=== PATIENT | female | born 1945 | race Caucasian/White ===

== ENCOUNTER 2017-09-24 15:35 | Inpatient (IN) | payer MEDICARE ==
[~2017-09-24] VITALS: Ht 157.5 cm; Wt 86.0 kg
[~2017-09-24 15:35] MED LIST: ASPI-621 PO; ATOR20TA PO; DESM0.1T2 PO; DIAZ5TAB PO; ERGO500017 PO; GABA300C10 PO; HYDR-3341 PO; HYDR100V3 SQ; HYDR10TA PO; IBUP-1221 PO; INSU100C5 SQ-INSULIN; INSU100I28 SQ-INSULIN; MORP20CA17 PO; MORP20SO IM; OMEP-110 PO; SENN1TAB7 PO
[2017-09-24 16:56] LABS: BASOPHILS # (AUTO) 0.01 x10^3/uL (0-0.1); BASOPHILS % (AUTO) 0 % (0-1); EOSINOPHILS # (AUTO) 0.08 x10^3/uL (0-0.4); EOSINOPHILS % (AUTO) 1 % (1-7); LYMPHOCYTES # (AUTO) 0.95 x10^3/uL (1-3.4); LYMPHOCYTES % (AUTO) 11 % (22-44); MD NO; MEAN CORPUSCULAR HEMOGLOBIN 29.6 pg (27.0-34.8); MEAN CORPUSCULAR HGB CONC 34.8 g/dL (32.4-35.8); MEAN CORPUSCULAR VOLUME 85.3 fL (80-100); MEAN PLATELET VOLUME 7.8 fL (7.4-10.4); MONOCYTES # (AUTO) 0.55 x10^3/uL (0.2-0.8); MONOCYTES % (AUTO) 6 % (2-9); NEUTROPHILS # (AUTO) 7.38 x10^3/uL (1.8-6.8); NEUTROPHILS % (AUTO) 82 % (42-75); PLATELET COUNT 401 x10^3/uL (130-400); RED BLOOD COUNT 5.82 x10^6/uL (3.82-5.3); RED CELL DISTRIBUTION WIDTH 12.7 % (9.6-15.2)
[2017-09-24 18:17] LABS: ALBUMIN 3.3 g/dL (3.4-5.0); ANION GAP 8 mmol/L (5-15); CALCIUM 8.7 mg/dL (8.5-10.1); CHLORIDE 106 mmol/L (98-107); CREATININE 0.84 mg/dL (0.55-1.02)
[2017-09-24 18:21] LABS: TROPONIN I < 0.015 ng/mL (0.000-0.045)
[2017-09-24] MEDS ORDERED: SODIUM CHLORIDE 0.9% 1,000 ML IV ONE ×3 (20:41→21:17)
[2017-09-24] MEDS ORDERED: [UNRECOGNIZED DRUG - CODE] SC (21:00)
[2017-09-24] MEDS ORDERED: HYDR100V3 INJ (21:00)
[2017-09-24] MEDS ORDERED: FENT-58 TD (21:00)
[2017-09-24] MEDS ORDERED: SODIUM CHLORIDE FLUSH 10ML SYR IVF PRN ×2 (21:30)
[2017-09-24] MEDS ORDERED: NS + 20MEQ KCL 1,000 ML IV SCH (21:49)
[2017-09-24] MEDS ORDERED: LABETALOL 5MG/ML, 20ML IVPush PRN (22:00)
[2017-09-24] MEDS ORDERED: TEMAZEPAM 15 MG CAPSULE PO PRN (22:00)
[2017-09-24] MEDS ORDERED: DOCUSATE 100 MG CAPSULE PO PRN (22:00)
[2017-09-24 22:15] VITALS: BP 161/86
[2017-09-24] MEDS: INSULIN LISPRO 100 UNITS/ML, PEN SQ-INSULIN SCH (23:15)
[2017-09-25] MEDS: HEPARIN 5,000 UNITS/ML, 1ML SQ SCH ×3 (00:37→17:08)
[2017-09-25 00:44] VITALS: BP 171/118
[2017-09-25 00:49] VITALS: BP 155/84
[2017-09-25 06:31] LABS: BASOPHILS # (AUTO) 0.01 x10^3/uL (0-0.1); BASOPHILS % (AUTO) 0 % (0-1); EOSINOPHILS % (AUTO) 1 % (1-7); LYMPHOCYTES # (AUTO) 1.52 x10^3/uL (1-3.4); LYMPHOCYTES % (AUTO) 15 % (22-44); MD NO; MEAN CORPUSCULAR HEMOGLOBIN 29.4 pg (27.0-34.8); MEAN CORPUSCULAR HGB CONC 34.8 g/dL (32.4-35.8); MEAN CORPUSCULAR VOLUME 84.5 fL (80-100); MONOCYTES # (AUTO) 0.74 x10^3/uL (0.2-0.8); MONOCYTES % (AUTO) 7 % (2-9); NEUTROPHILS # (AUTO) 8.15 x10^3/uL (1.8-6.8); NEUTROPHILS % (AUTO) 78 % (42-75); PLATELET COUNT 327 x10^3/uL (130-400); RED CELL DISTRIBUTION WIDTH 12.6 % (9.6-15.2)
[2017-09-25 06:41] LABS: CALCIUM 8.4 mg/dL (8.5-10.1); CHLORIDE 108 mmol/L (98-107)
[2017-09-25 07:14] LABS: CHLORIDE,URINE RANDOM 158 mmol/L; POTASSIUM,URINE RANDOM 36 mmol/L; SODIUM,URINE RANDOM 148 mmol/L
[2017-09-25] MEDS: HYDROCORTISONE 10 MG TABLET PO SCH (07:30)
[2017-09-25 07:31] LABS: ALANINE AMINOTRANSFERASE 35 U/L (12-78); ALBUMIN 3.2 g/dL (3.4-5.0); ALKALINE PHOSPHATASE 94 U/L (45-117); ANION GAP 13 mmol/L (5-15); BILIRUBIN,TOTAL 0.8 mg/dL (0.2-1.0); CREATININE 0.78 mg/dL (0.55-1.02); TOTAL PROTEIN 7.4 g/dL (6.4-8.2)
[2017-09-25 08:18] VITALS: BP 135/90
[2017-09-25] MEDS ORDERED: HYDROCORTISONE 20 MG TABLET ONE (08:23)
[2017-09-25] MEDS ORDERED: HYDROCORTISONE 5 MG TABLET ONE (08:23)
[2017-09-25] MEDS ORDERED: FENTANYL 50 MCG PATCH ONE (08:24)
[2017-09-25] MEDS: GABAPENTIN 300 MG CAPSULE PO SCH ×3 (08:33→21:12)
[2017-09-25] MEDS: ASPIRIN 81 MG TABLET EC PO SCH (08:33)
[2017-09-25] MEDS: POTASSIUM CHLORIDE 20 MEQ TAB.ER.PRT PO SCH ×3 (08:34→11:13)
[2017-09-25] MEDS: FAMOTIDINE 20 MG TABLET PO SCH ×2 (08:34→21:13)
[2017-09-25] MEDS: INSULIN LISPRO 100 UNITS/ML, PEN SQ-INSULIN SCH ×4 (08:35→21:13)
[2017-09-25] MEDS: SOMATROPIN SC SCH (08:35)
[2017-09-25] MEDS: INSULIN GLARGINE 100 UNITS/ML, PEN SQ-INSULIN SCH (09:00)
[2017-09-25] MEDS ORDERED: FENTANYL 100 MCG PATCH TD SCH (09:00)
[2017-09-25] MEDS: DESMOPRESSIN 0.2 MG TABLET PO SCH (10:34)
[2017-09-25 11:25] LABS: CLOSTRIDIUM DIFFICILE ANTIGEN NEGATIVE; CLOSTRIDIUM DIFFICILE TOXIN NEGATIVE (Negative)
[2017-09-25] MEDS: HYDROmorphone 2 MG/ML, 1ML IVPush PRN ×3 (12:17→21:18)
[2017-09-25 13:24] VITALS: BP 145/87
[2017-09-25] MEDS: POTASSIUM CHLORIDE 40 MEQ in SODIUM CHLORIDE 0.9% 500 ML IV SCH ×2 (13:30→17:53)
[2017-09-25] MEDS ORDERED: FENTANYL 25 MCG PATCH TD SCH ×2 (15:00)
[2017-09-25 17:29] LABS: MICROSCOPIC AUTO
[2017-09-25 17:31] LABS: CULTURE INDICATED? NO
[2017-09-25 20:45] VITALS: BP 147/82
[2017-09-26] MEDS: HEPARIN 5,000 UNITS/ML, 1ML SQ SCH ×3 (00:13→17:20)
[2017-09-26 02:35] VITALS: BP 175/96
[2017-09-26] MEDS: HYDROmorphone 2 MG/ML, 1ML IVPush PRN ×5 (02:51→20:51)
[2017-09-26 03:55] VITALS: BP 166/83
[2017-09-26 04:53] LABS: BASOPHILS # (AUTO) 0.16 x10^3/uL (0-0.1); BASOPHILS % (AUTO) 2 % (0-1); EOSINOPHILS # (AUTO) 0.29 x10^3/uL (0-0.4); EOSINOPHILS % (AUTO) 3 % (1-7); LYMPHOCYTES # (AUTO) 2.39 x10^3/uL (1-3.4); LYMPHOCYTES % (AUTO) 25 % (22-44); MD NO; MEAN CORPUSCULAR HEMOGLOBIN 29.2 pg (27.0-34.8); MEAN CORPUSCULAR HGB CONC 33.6 g/dL (32.4-35.8); MEAN CORPUSCULAR VOLUME 86.9 fL (80-100); MONOCYTES # (AUTO) 0.87 x10^3/uL (0.2-0.8); MONOCYTES % (AUTO) 9 % (2-9); NEUTROPHILS # (AUTO) 5.83 x10^3/uL (1.8-6.8); NEUTROPHILS % (AUTO) 61 % (42-75); PLATELET COUNT 364 x10^3/uL (130-400); RED BLOOD COUNT 5.62 x10^6/uL (3.82-5.3); RED CELL DISTRIBUTION WIDTH 13.2 % (9.6-15.2)
[2017-09-26 05:02] LABS: ALANINE AMINOTRANSFERASE 30 U/L (12-78); ANION GAP 5 mmol/L (5-15); CALCIUM 8.9 mg/dL (8.5-10.1); CHLORIDE 111 mmol/L (98-107); CREATININE 1.01 mg/dL (0.55-1.02)
[2017-09-26 05:04] LABS: ALKALINE PHOSPHATASE 81 U/L (45-117); BILIRUBIN,TOTAL 0.7 mg/dL (0.2-1.0); TOTAL PROTEIN 6.8 g/dL (6.4-8.2)
[2017-09-26] MEDS: INSULIN LISPRO 100 UNITS/ML, PEN SQ-INSULIN SCH ×4 (07:00→20:54)
[2017-09-26] MEDS: HYDROCORTISONE 10 MG TABLET PO SCH (07:30)
[2017-09-26 07:56] VITALS: BP 167/83
[2017-09-26] MEDS ORDERED: POTASSIUM CHLORIDE 40 MEQ in SODIUM CHLORIDE 0.45% 1,000 ML IV SCH (09:00)
[2017-09-26] MEDS ORDERED: NS + 40MEQ KCL 1,000 ML IV SCH (09:00)
[2017-09-26] MEDS ORDERED: MAGNESIUM SULFATE PMX 2GM/50ML 50 ML IV ONE (09:00)
[2017-09-26] MEDS ORDERED: POTASSIUM PHOSPHATE 44 MEQ in SODIUM CHLORIDE 0.9% 500 ML IV ONE (09:00)
[2017-09-26] MEDS: SOMATROPIN SC SCH (09:00)
[2017-09-26] MEDS ORDERED: HYDROCORTISONE 20 MG TABLET ONE (09:16)
[2017-09-26] MEDS ORDERED: HYDROCORTISONE 5 MG TABLET ONE (09:16)
[2017-09-26] MEDS: GABAPENTIN 300 MG CAPSULE PO SCH ×3 (09:24→20:51)
[2017-09-26] MEDS: ASPIRIN 81 MG TABLET EC PO SCH (09:24)
[2017-09-26] MEDS: FAMOTIDINE 20 MG TABLET PO SCH ×2 (09:25→20:51)
[2017-09-26] MEDS: DESMOPRESSIN 0.2 MG TABLET PO SCH (09:25)
[2017-09-26] MEDS: INSULIN GLARGINE 100 UNITS/ML, PEN SQ-INSULIN SCH (09:27)
[2017-09-26] MEDS ORDERED: INSULIN GLARGINE 100 UNITS/ML, PEN SQ-INSULIN ONE ×2 (12:30→16:30)
[2017-09-26 13:14] VITALS: BP 160/92
[2017-09-26 20:11] VITALS: BP 152/82
[2017-09-27] MEDS: HYDROmorphone 2 MG/ML, 1ML IVPush PRN ×7 (00:17→21:17)
[2017-09-27] MEDS: HEPARIN 5,000 UNITS/ML, 1ML SQ SCH ×4 (00:18→23:57)
[2017-09-27 01:19] VITALS: BP 145/76
[2017-09-27 05:27] LABS: BASOPHILS # (AUTO) 0.17 x10^3/uL (0-0.1); BASOPHILS % (AUTO) 2 % (0-1); EOSINOPHILS % (AUTO) 5 % (1-7); LYMPHOCYTES # (AUTO) 2.49 x10^3/uL (1-3.4); LYMPHOCYTES % (AUTO) 25 % (22-44); MD NO; MEAN CORPUSCULAR HEMOGLOBIN 29.3 pg (27.0-34.8); MEAN CORPUSCULAR HGB CONC 34.6 g/dL (32.4-35.8); MEAN CORPUSCULAR VOLUME 84.7 fL (80-100); MEAN PLATELET VOLUME 7.9 fL (7.4-10.4); MONOCYTES % (AUTO) 9 % (2-9); NEUTROPHILS # (AUTO) 5.86 x10^3/uL (1.8-6.8); NEUTROPHILS % (AUTO) 59 % (42-75); PLATELET COUNT 276 x10^3/uL (130-400); RED BLOOD COUNT 5.45 x10^6/uL (3.82-5.3); RED CELL DISTRIBUTION WIDTH 12.9 % (9.6-15.2)
[2017-09-27 05:37] LABS: ALBUMIN 2.9 g/dL (3.4-5.0); ANION GAP 9 mmol/L (5-15); CALCIUM 8.8 mg/dL (8.5-10.1); CHLORIDE 109 mmol/L (98-107)
[2017-09-27 05:40] LABS: ALANINE AMINOTRANSFERASE 27 U/L (12-78); ALKALINE PHOSPHATASE 71 U/L (45-117); BILIRUBIN,TOTAL 0.5 mg/dL (0.2-1.0); CREATININE 0.99 mg/dL (0.55-1.02); TOTAL PROTEIN 6.7 g/dL (6.4-8.2)
[2017-09-27 06:35] VITALS: BP 159/83
[2017-09-27] MEDS ORDERED: HYDROCORTISONE 20 MG TABLET ONE (08:26)
[2017-09-27] MEDS ORDERED: HYDROCORTISONE 5 MG TABLET ONE (08:26)
[2017-09-27] MEDS: INSULIN LISPRO 100 UNITS/ML, PEN SQ-INSULIN SCH ×4 (08:36→20:17)
[2017-09-27] MEDS: FAMOTIDINE 20 MG TABLET PO SCH ×2 (08:38→20:12)
[2017-09-27] MEDS: ASPIRIN 81 MG TABLET EC PO SCH (08:38)
[2017-09-27] MEDS: HYDROCORTISONE 10 MG TABLET PO SCH (08:39)
[2017-09-27] MEDS: DESMOPRESSIN 0.2 MG TABLET PO SCH (08:39)
[2017-09-27] MEDS: GABAPENTIN 300 MG CAPSULE PO SCH ×3 (08:50→20:12)
[2017-09-27] MEDS: SOMATROPIN SC SCH (09:18)
[2017-09-27] MEDS: INSULIN GLARGINE 100 UNITS/ML, PEN SQ-INSULIN SCH (09:18)
[2017-09-27 11:12] VITALS: BP 159/84
[2017-09-27 13:27] VITALS: BP 165/89
[2017-09-27 16:22] VITALS: BP 157/88
[2017-09-27 19:18] VITALS: BP 130/65
[2017-09-28 01:25] VITALS: BP 155/98
[2017-09-28] MEDS: HYDROmorphone 2 MG/ML, 1ML IVPush PRN ×2 (04:44→10:28)
[2017-09-28 05:38] LABS: BASOPHILS # (AUTO) 0.09 x10^3/uL (0-0.1); BASOPHILS % (AUTO) 1 % (0-1); EOSINOPHILS % (AUTO) 6 % (1-7); LYMPHOCYTES # (AUTO) 2.08 x10^3/uL (1-3.4); LYMPHOCYTES % (AUTO) 26 % (22-44); MD NO; MEAN CORPUSCULAR HEMOGLOBIN 29.7 pg (27.0-34.8); MEAN CORPUSCULAR VOLUME 84.8 fL (80-100); MEAN PLATELET VOLUME 8.4 fL (7.4-10.4); MONOCYTES # (AUTO) 0.73 x10^3/uL (0.2-0.8); MONOCYTES % (AUTO) 9 % (2-9); NEUTROPHILS # (AUTO) 4.65 x10^3/uL (1.8-6.8); NEUTROPHILS % (AUTO) 58 % (42-75); PLATELET COUNT 312 x10^3/uL (130-400); RED BLOOD COUNT 5.38 x10^6/uL (3.82-5.3)
[2017-09-28 05:45] LABS: CHLORIDE 108 mmol/L (98-107)
[2017-09-28 06:07] LABS: ALANINE AMINOTRANSFERASE 29 U/L (12-78); ALKALINE PHOSPHATASE 78 U/L (45-117); ANION GAP 11 mmol/L (5-15); BILIRUBIN,TOTAL 0.7 mg/dL (0.2-1.0); CALCIUM 9.1 mg/dL (8.5-10.1); CREATININE 0.88 mg/dL (0.55-1.02); TOTAL PROTEIN 6.9 g/dL (6.4-8.2)
[2017-09-28 06:46] VITALS: BP 155/101
[2017-09-28] MEDS: INSULIN LISPRO 100 UNITS/ML, PEN SQ-INSULIN SCH (07:00)
[2017-09-28] MEDS: HYDROCORTISONE 10 MG TABLET PO SCH (07:30)
[2017-09-28] MEDS ORDERED: HYDROCORTISONE 20 MG TABLET ONE (08:22)
[2017-09-28] MEDS ORDERED: HYDROCORTISONE 5 MG TABLET ONE (08:22)
[2017-09-28] MEDS ORDERED: FENTANYL 50 MCG PATCH ONE (08:23)
[2017-09-28] MEDS: ASPIRIN 81 MG TABLET EC PO SCH (08:37)
[2017-09-28] MEDS: HEPARIN 5,000 UNITS/ML, 1ML SQ SCH (08:37)
[2017-09-28] MEDS: DESMOPRESSIN 0.2 MG TABLET PO SCH (08:37)
[2017-09-28] MEDS: GABAPENTIN 300 MG CAPSULE PO SCH (08:37)
[2017-09-28] MEDS: FAMOTIDINE 20 MG TABLET PO SCH (08:37)
[2017-09-28] MEDS: INSULIN GLARGINE 100 UNITS/ML, PEN SQ-INSULIN SCH (08:38)
[2017-09-28] MEDS: SOMATROPIN SC SCH (08:39)
[2017-09-28] MEDS ORDERED: FENTANYL 25 MCG PATCH TD SCH (09:00)
[2017-09-28] MEDS ORDERED: FENTANYL 100 MCG PATCH TD SCH (09:00)
== END 2017-09-28 11:32 | disposition home or self-care (01) | DRG 642 ==
LOC: ED 21:50 → 3NE 22:00 → EDIP 22:00 → 5SO 09-25 00:40 → DCLOUNGE 09-28 11:07
PROVIDERS: ADMIT Internal Medicine; ATTEND Internal Medicine
DX: E83.39 Other disorders of phosphorus metabolism (principal); E23.2 Diabetes insipidus; E27.3 Drug-induced adrenocortical insufficiency; F11.20 Opioid dependence, uncomplicated; E87.6 Hypokalemia; E11.9 Type 2 diabetes mellitus without complications; D49.7 Neoplasm of unspecified behavior of endocrine glands and other parts of nervous system; E86.0 Dehydration; G89.4 Chronic pain syndrome; M54.2 Cervicalgia; M54.9 Dorsalgia, unspecified; I10 Essential (primary) hypertension; R56.9 Unspecified convulsions; T38.0X5A Adverse effect of glucocorticoids and synthetic analogues, initial encounter; Z66 Do not resuscitate; Z79.52 Long term (current) use of systemic steroids; Z85.841 Personal history of malignant neoplasm of brain; Z86.73 Personal history of transient ischemic attack (TIA), and cerebral infarction without residual deficits; Z90.710 Acquired absence of both cervix and uterus; Z88.8 Allergy status to other drugs, medicaments and biological substances
CPT/HCPCS: 36415; 71045; 74176; 80048; 80053; 81001; 82040; 82164; 82436; 82962; 83735; 83880; 83930; 84100; 84133; 84244; 84300; 84484; 84588; 85025; 87324; 93005; 96365; J1170; J1644; J3480; J1815; J3475; J7030; J7040

== ENCOUNTER 2017-10-04 12:11 | Inpatient (IN) | payer MEDICARE ==
[~2017-10-04] VITALS: Ht 154.9 cm; Wt 82.6 kg
[~2017-10-04 12:11] MED LIST changes: +FENT-58 TD; +HYDR100V3 INJ; +[UNRECOGNIZED DRUG - CODE] SC
[2017-10-04] MEDS ORDERED: SODIUM CHLORIDE 0.9% 1,000 ML IV ONE (12:24)
[2017-10-04] MEDS ORDERED: SODIUM CHLORIDE FLUSH 10ML SYR IVF ONE (12:30)
[2017-10-04 13:08] LABS: ALANINE AMINOTRANSFERASE 40 U/L (12-78); ALBUMIN 3.5 g/dL (3.4-5.0); ANION GAP 11 mmol/L (5-15); CHLORIDE 102 mmol/L (98-107); CREATININE 1.09 mg/dL (0.55-1.02)
[2017-10-04 13:11] LABS: ALKALINE PHOSPHATASE 111 U/L (45-117); BILIRUBIN,TOTAL 0.6 mg/dL (0.2-1.0); TOTAL PROTEIN 7.8 g/dL (6.4-8.2)
[2017-10-04 13:26] LABS: MICROSCOPIC AUTO
[2017-10-04 13:42] LABS: BASOPHILS # (AUTO) 0.04 x10^3/uL (0-0.1); BASOPHILS % (AUTO) 1 % (0-1); EOSINOPHILS # (AUTO) 0.05 x10^3/uL (0-0.4); EOSINOPHILS % (AUTO) 1 % (1-7); LYMPHOCYTES # (AUTO) 1.13 x10^3/uL (1-3.4); LYMPHOCYTES % (AUTO) 14 % (22-44); MD NO; MEAN CORPUSCULAR HEMOGLOBIN 29.5 pg (27.0-34.8); MEAN CORPUSCULAR HGB CONC 34.3 g/dL (32.4-35.8); MEAN CORPUSCULAR VOLUME 85.9 fL (80-100); MONOCYTES % (AUTO) 5 % (2-9); NEUTROPHILS # (AUTO) 6.53 x10^3/uL (1.8-6.8); NEUTROPHILS % (AUTO) 80 % (42-75); PLATELET COUNT 317 x10^3/uL (130-400); RED BLOOD COUNT 5.97 x10^6/uL (3.82-5.3); RED CELL DISTRIBUTION WIDTH 12.8 % (9.6-15.2)
[2017-10-04 13:45] LABS: CULTURE INDICATED? NO
[2017-10-04] MEDS ORDERED: ZIPRASIDONE 20 MG INJ IM ONE ×2 (17:09→17:30)
[2017-10-04] MEDS ORDERED: ACETAMINOPHEN 325 MG TABLET PO PRN (18:00)
[2017-10-04] MEDS ORDERED: LORazepam 0.5MG TABLET PO PRN (18:00)
[2017-10-04] MEDS ORDERED: BISACODYL 10 MG SUPP PR PRN (18:00)
[2017-10-04] MEDS ORDERED: FENTANYL 100 MCG PATCH TD SCH (20:00)
[2017-10-04] MEDS ORDERED: FENTANYL REMOVE PATCH NOTE XX SCH (20:00)
[2017-10-04] MEDS ORDERED: FENTANYL 50 MCG PATCH ONE (20:14)
[2017-10-04] MEDS: ONDANSETRON ODT 4 MG PO PRN (20:19)
[2017-10-04] MEDS ORDERED: hydrALAzine 20 MG/ML, 1ML IV PRN (20:30)
[2017-10-04 21:00] VITALS: BP 193/81
[2017-10-04] MEDS: SODIUM CHLORIDE FLUSH 10ML SYR IVF SCH (21:00)
[2017-10-04 22:19] LABS: CLOSTRIDIUM DIFFICILE ANTIGEN NEGATIVE; CLOSTRIDIUM DIFFICILE TOXIN NEGATIVE (Negative)
[2017-10-04] MEDS: POTASSIUM CHLORIDE 8 MEQ TABLET.ER PO SCH (22:35)
[2017-10-04] MEDS: HEPARIN 5,000 UNITS/ML, 1ML SQ SCH (22:35)
[2017-10-04] MEDS: GABAPENTIN 300 MG CAPSULE PO SCH (22:35)
[2017-10-04] MEDS: QUETIAPINE 25MG TABLET PO SCH (22:36)
[2017-10-04] MEDS: SODIUM CHLORIDE 0.9% 1,000 ML IV SCH (22:37)
[2017-10-04] MEDS: KETOROLAC 30 MG/1 ML IVPush PRN (23:11)
[2017-10-04] MEDS: INSULIN LISPRO 100 UNITS/ML, PEN SQ-INSULIN SCH (23:12)
[2017-10-05 02:10] VITALS: BP 145/87
[2017-10-05] MEDS: HEPARIN 5,000 UNITS/ML, 1ML SQ SCH ×3 (05:02→21:07)
[2017-10-05] MEDS: SODIUM CHLORIDE 0.9% 1,000 ML IV SCH ×2 (05:03→15:31)
[2017-10-05] MEDS: KETOROLAC 30 MG/1 ML IVPush PRN (05:03)
[2017-10-05] MEDS: ONDANSETRON ODT 4 MG PO PRN ×2 (05:03→08:52)
[2017-10-05 05:54] LABS: ALBUMIN 3.5 g/dL (3.4-5.0); ANION GAP 12 mmol/L (5-15); CALCIUM 9.4 mg/dL (8.5-10.1); CHLORIDE 103 mmol/L (98-107)
[2017-10-05 05:55] LABS: BASOPHILS # (AUTO) 0.02 x10^3/uL (0-0.1); BASOPHILS % (AUTO) 0 % (0-1); EOSINOPHILS # (AUTO) 0.02 x10^3/uL (0-0.4); EOSINOPHILS % (AUTO) 0 % (1-7); LYMPHOCYTES # (AUTO) 1.09 x10^3/uL (1-3.4); LYMPHOCYTES % (AUTO) 10 % (22-44); MD NO; MEAN CORPUSCULAR VOLUME 85.3 fL (80-100); MONOCYTES % (AUTO) 9 % (2-9); NEUTROPHILS # (AUTO) 8.47 x10^3/uL (1.8-6.8); NEUTROPHILS % (AUTO) 81 % (42-75); PLATELET COUNT 344 x10^3/uL (130-400); RED BLOOD COUNT 6.37 x10^6/uL (3.82-5.3); RED CELL DISTRIBUTION WIDTH 12.9 % (9.6-15.2)
[2017-10-05 06:00] LABS: ALANINE AMINOTRANSFERASE 41 U/L (12-78); ALKALINE PHOSPHATASE 117 U/L (45-117); BILIRUBIN,TOTAL 0.8 mg/dL (0.2-1.0); CREATININE 1.23 mg/dL (0.55-1.02)
[2017-10-05] MEDS: INSULIN LISPRO 100 UNITS/ML, PEN SQ-INSULIN SCH ×4 (06:32→21:07)
[2017-10-05 07:14] VITALS: BP 173/113
[2017-10-05] MEDS: GABAPENTIN 300 MG CAPSULE PO SCH ×3 (08:52→21:00)
[2017-10-05] MEDS: DESMOPRESSIN 0.2 MG TABLET PO SCH (08:53)
[2017-10-05] MEDS: POTASSIUM CHLORIDE 8 MEQ TABLET.ER PO SCH (08:53)
[2017-10-05] MEDS: HYDROCORTISONE 10 MG TABLET PO SCH (08:53)
[2017-10-05] MEDS: QUETIAPINE 25MG TABLET PO SCH ×2 (08:54→21:06)
[2017-10-05] MEDS: ASPIRIN 81 MG TABLET EC PO SCH (08:54)
[2017-10-05] MEDS: SODIUM CHLORIDE FLUSH 10ML SYR IVF SCH ×3 (08:55→21:06)
[2017-10-05] MEDS ORDERED: INSULIN GLARGINE 100 UNITS/ML, PEN SQ-INSULIN SCH (09:00)
[2017-10-05] MEDS ORDERED: DEXTROSE 4 GM TAB.CHEW PO PRN (12:00)
[2017-10-05] MEDS ORDERED: DEXTROSE 50%, 50ML SYRINGE IVPush PRN (12:00)
[2017-10-05] MEDS ORDERED: POTASSIUM CHLORIDE 20 MEQ TAB.ER.PRT PO ONE (12:00)
[2017-10-05] MEDS ORDERED: GLUCAGON 1 MG IM PRN (12:00)
[2017-10-05 13:46] VITALS: BP 118/81
[2017-10-05] MEDS: SOMATROPIN SC SCH (15:04)
[2017-10-05 19:38] VITALS: BP 131/81
[2017-10-06 00:27] VITALS: BP 97/62
[2017-10-06] MEDS: SODIUM CHLORIDE 0.9% 1,000 ML IV SCH ×3 (00:53→16:26)
[2017-10-06] MEDS: HEPARIN 5,000 UNITS/ML, 1ML SQ SCH ×2 (05:05→16:25)
[2017-10-06 05:12] LABS: BASOPHILS # (AUTO) 0.04 x10^3/uL (0-0.1); BASOPHILS % (AUTO) 0 % (0-1); EOSINOPHILS # (AUTO) 0.51 x10^3/uL (0-0.4); EOSINOPHILS % (AUTO) 5 % (1-7); LYMPHOCYTES # (AUTO) 2.21 x10^3/uL (1-3.4); LYMPHOCYTES % (AUTO) 23 % (22-44); MD NO; MEAN CORPUSCULAR HEMOGLOBIN 29.4 pg (27.0-34.8); MEAN CORPUSCULAR VOLUME 86.6 fL (80-100); MEAN PLATELET VOLUME 8.1 fL (7.4-10.4); MONOCYTES # (AUTO) 1.01 x10^3/uL (0.2-0.8); MONOCYTES % (AUTO) 10 % (2-9); NEUTROPHILS # (AUTO) 5.92 x10^3/uL (1.8-6.8); NEUTROPHILS % (AUTO) 61 % (42-75); PLATELET COUNT 319 x10^3/uL (130-400); RED BLOOD COUNT 5.27 x10^6/uL (3.82-5.3); RED CELL DISTRIBUTION WIDTH 13.8 % (9.6-15.2)
[2017-10-06 05:16] LABS: ALBUMIN 2.8 g/dL (3.4-5.0); ANION GAP 8 mmol/L (5-15); CALCIUM 9.2 mg/dL (8.5-10.1); CHLORIDE 107 mmol/L (98-107)
[2017-10-06 05:20] LABS: ALANINE AMINOTRANSFERASE 32 U/L (12-78); ALKALINE PHOSPHATASE 87 U/L (45-117); BILIRUBIN,TOTAL 0.4 mg/dL (0.2-1.0); CREATININE 1.34 mg/dL (0.55-1.02); TOTAL PROTEIN 6.4 g/dL (6.4-8.2)
[2017-10-06 07:26] VITALS: BP 131/88
[2017-10-06] MEDS: INSULIN LISPRO 100 UNITS/ML, PEN SQ-INSULIN SCH ×3 (08:14→16:25)
[2017-10-06] MEDS: DESMOPRESSIN 0.2 MG TABLET PO SCH (08:16)
[2017-10-06] MEDS: GABAPENTIN 300 MG CAPSULE PO SCH ×2 (08:17→16:00)
[2017-10-06] MEDS: HYDROCORTISONE 10 MG TABLET PO SCH (08:17)
[2017-10-06] MEDS: SODIUM CHLORIDE FLUSH 10ML SYR IVF SCH ×2 (08:18→08:20)
[2017-10-06] MEDS: SOMATROPIN SC SCH (08:18)
[2017-10-06] MEDS: QUETIAPINE 25MG TABLET PO SCH (08:18)
[2017-10-06] MEDS: ASPIRIN 81 MG TABLET EC PO SCH (08:18)
[2017-10-06] MEDS ORDERED: INSULIN GLARGINE 100 UNITS/ML, PEN SQ-INSULIN SCH (09:00)
[2017-10-06 14:09] VITALS: BP 146/75
== END 2017-10-06 18:25 | disposition home health service (06) | DRG 552 ==
LOC: ED 13:21 → EDIP 15:13 → 3NE 19:20
PROVIDERS: ADMIT Internal Medicine; ATTEND Internal Medicine
PROC: 0T9B70Z Drainage of Bladder with Drainage Device, Via Natural or Artificial Opening (ICD-10-PCS; principal; 2017-10-04)
DX: M54.9 Dorsalgia, unspecified (principal); F11.23 Opioid dependence with withdrawal; E27.40 Unspecified adrenocortical insufficiency; Z99.11 Dependence on respirator [ventilator] status; E23.2 Diabetes insipidus; N17.9 Acute kidney failure, unspecified; J81.1 Chronic pulmonary edema; N18.9 Chronic kidney disease, unspecified; E11.22 Type 2 diabetes mellitus with diabetic chronic kidney disease; I12.9 Hypertensive chronic kidney disease with stage 1 through stage 4 chronic kidney disease, or unspecified chronic kidney disease; R53.81 Other malaise; E86.0 Dehydration; F39 Unspecified mood [affective] disorder; H49.00 Third [oculomotor] nerve palsy, unspecified eye; M54.2 Cervicalgia; R35.8 Other polyuria; Z66 Do not resuscitate; Z79.82 Long term (current) use of aspirin; Z86.73 Personal history of transient ischemic attack (TIA), and cerebral infarction without residual deficits; Z87.440 Personal history of urinary (tract) infections; Z90.710 Acquired absence of both cervix and uterus; Z79.899 Other long term (current) drug therapy
CPT/HCPCS: 36415; 71045; 80053; 81001; 82962; 83036; 83735; 84100; 85025; 87324; 93005; 96372; J1644; J1885; J3486; Q0162; J0360; J1815; J7030